=== PATIENT | male | born 1985 | race African-American/Black ===

== ENCOUNTER → 2021-07-17 | Emergency (ER) | payer OTHER ==
[~2021-07-17] VITALS: Ht 185.4 cm; Wt 99.8 kg
== END | disposition left against medical advice (07) ==
LOC: ER 07:53
DX: B34.9 Viral infection, unspecified (principal); Z03.818 Encounter for observation for suspected exposure to other biological agents ruled out; Z53.21 Procedure and treatment not carried out due to patient leaving prior to being seen by health care provider

== ENCOUNTER → 2021-07-17 | Emergency (ER) | payer OTHER ==
[~2021-07-17] VITALS: Ht 185.4 cm; Wt 97.5 kg
== END | disposition home or self-care (01) ==
LOC: ER 11:52
DX: F41.9 Anxiety disorder, unspecified (principal)